=== PATIENT | female | born 1945 | race Caucasian/White ===

== ENCOUNTER 2017-12-22 19:45 | Outpatient (CLI) | payer MEDICARE, OTHER | END 2017-12-22 19:46 | disposition short-term general hospital (02) | LOC: EMS 19:45 | PROVIDERS: ATTEND Surgery | DX: M25.551 Pain in right hip (principal); W18.30XA Fall on same level, unspecified, initial encounter; Y92.002 Bathroom of unspecified non-institutional (private) residence as the place of occurrence of the external cause; Z96.641 Presence of right artificial hip joint | CPT/HCPCS: A0425; A0429; A0888 ==